=== PATIENT | male | born 1990 | race Caucasian/White ===

== ENCOUNTER 2022-05-16 01:18 | Emergency (ER) | payer BC ==
[~2022-05-16] VITALS: Ht 180.3 cm; Wt 96.2 kg
--- NOTE | 2022-05-16 01:40 | NUR ---
TO ER BED 1. BIBRA FROM HOME C/O LEFT SHOULDER PAIN "ROLLING IN BED". HX PAST SHOULDER DISLOCATIONS. PT IS ALERT AND ORIENTED. RR EVEN AND NON LABORED. CONNECTED TO MONITOR. AWAITING MD PONCE
--- NOTE | 2022-05-16 02:17 | NUR ---
[employer] SAL[employer] REPRESENTATIVE AT PT'S BEDSIDE
--- NOTE | 2022-05-16 03:25 | NUR ---
IV removed. Catheter intact and site benign. Pressure and 4x4 applied to site. No bleeding noted.
--- NOTE | 2022-05-16 03:25 | NUR ---
Patient discharged to home in stable condition. Written and verbal after care instructions given. Patient verbalizes understanding of instruction.
[2022-05-16 03:26] VITALS: BP 136/74
== END 2022-05-16 03:27 | disposition home or self-care (01) ==
LOC: ER 01:30
DX: M24.412 Recurrent dislocation, left shoulder (principal); Z60.2 Problems related to living alone
CPT/HCPCS: 99283; 73030 ×2; J7030